=== PATIENT | male | born 1960 | race Caucasian/White ===

== ENCOUNTER → 2016-11-13 | Outpatient (CLI) | payer MEDICARE, MEDICAID | END | disposition short-term general hospital (02) | LOC: CLPULM 10-16 16:19 | DX: J44.9 Chronic obstructive pulmonary disease, unspecified (principal); J45.909 Unspecified asthma, uncomplicated; I10 Essential (primary) hypertension; R09.02 Hypoxemia; R91.1 Solitary pulmonary nodule; E78.5 Hyperlipidemia, unspecified; Z72.0 Tobacco use ==